=== PATIENT | male | born 1970 | race Caucasian/White ===

== ENCOUNTER → 2022-11-05 | Day surgery (SDC) | payer BC, OTHER ==
[~2022-11-05] MED LIST: Ketamine 200 MG/20 ML MDV ONE; Propofol 200 MG/20 ML SDV ONE; fentaNYL 50 MCG/ML SDV ONE
[2022-11-05] MEDS: Lactated Ringers 1,000 ML IV SCH (08:12)
== END ==
LOC: CC.SDS 07:56
PROVIDERS: ATTEND Family Medicine
DX: Z12.11 Encounter for screening for malignant neoplasm of colon (principal); D12.0 Benign neoplasm of cecum; K57.30 Diverticulosis of large intestine without perforation or abscess without bleeding; E66.9 Obesity, unspecified; Z68.34 Body mass index [BMI] 34.0-34.9, adult; Z98.890 Other specified postprocedural states
CPT/HCPCS: 00811; J2704; J3010; J3490; J7120